=== PATIENT | female | born 1965 | race Caucasian/White ===

== ENCOUNTER 2017-05-13 23:27 | Emergency (ER) | payer OTHER ==
[2017-05-13] MEDS ORDERED: HYDROmorphone 2 MG/ML SDV IM ONE (23:54)
[2017-05-14] MEDS ORDERED: Acetaminophen/oxyCODONE 325-5 MG Tab PO ONE (00:52)
--- NOTE | 2017-05-14 02:07 | ER ---
DATE SEEN: 05/13/2017 CHIEF COMPLAINT: Abdominal pain. HISTORY OF PRESENT ILLNESS: This is a 52-year-old female with abdominal pain, right upper quadrant and epigastrium. This started tonight and she believes she had a gallbladder attack because she has had similar symptoms before. She took hyoscyamine and Percocet with minimal relief. REVIEW OF SYSTEMS: No chest pain or shortness of breath. No nausea or vomiting. PAST MEDICAL HISTORY: No active medical problems. SOCIAL HISTORY: Noncontributory. PHYSICAL EXAMINATION: VITAL SIGNS: Afebrile. Blood pressure 157/73. ABDOMEN: Soft with tenderness in the epigastrium. No masses. Bowel sounds are present. CHEST: Clear. SKIN: No pallor or jaundice. LABORATORY DATA: Normal labs including troponin, amylase, and CMP. IMPRESSION: Abdominal pain. PLAN: Dilaudid 2 mg IM symptoms improved. Discharged home on hyoscyamine tablets and Percocet as needed. TIME SEEN: Midnight. /[id number] SHITAL/[place]
== END 2017-05-14 01:10 | disposition home or self-care (01) ==
LOC: FB.ED 23:27
DX: R10.11 Right upper quadrant pain (principal); R10.13 Epigastric pain
CPT/HCPCS: 36415; 80053; 82150; 84484; 85025; 96372; 99284; A9270-GY; J1170